=== PATIENT | male | born 1975 | race Caucasian/White ===

== ENCOUNTER 2021-06-06 09:55 | Emergency (ER) | payer OTHER ==
[~2021-06-06 09:55] MED LIST: INVOKANA100 MG PO; PRINIVIL10 MG PO; ZOCOR5 MG PO
[2021-06-06 10:42] LABS: BASOPHIL 0.9 % (0-2); HCT 43.6 % (42.0-52.0); HGB 15.2 g/dl (13.2-18.0); LYMPHOCYTE 23.5 % (15-48); MCH 29.9 pg (25.0-31.0); MCHC 34.9 g/dL (32.0-36.0); MCV 85.8 fL (78.0-100.0); MONOCYTE 7.5 % (0-12); MPV 9.8 fL (6.0-9.5); NEUTROPHIL 66.8 % (41-80); NRBC 0; PLT 215 K/uL (150-400); RBC 5.08 M/uL (4.70-6.00); WBC 5.9 K/uL (4.0-10.5)
[2021-06-06 11:25] LABS: INR 0.99 (0.9-1.2); PROTHROMBIN TIME 12.5 SECONDS (11.8-13.4); PTT 26.9 SECONDS (24.4-34.7)
[2021-06-06 11:43] LABS: ALBUMIN 3.5 g/dL (3.4-5.0); BILIRUBIN - TOTAL 0.5 mg/dL (0.2-1.0); BUN/CREAT RATIO (CALC) 21.2 RATIO; CREATININE 0.66 mg/dL (0.67-1.17); GLOBULIN (CALCULATION) 3.1 g/dL; POTASSIUM 4.3 mmol/L (3.5-5.1); TOTAL PROTEIN 6.6 g/dL (6.4-8.2)
[2021-06-06 13:17] LABS: INFLUENZA A NAA NEGATIVE (NEGATIVE)
[2021-06-06 13:31] LABS: CORONAVIRUS 2019 SARS-COV-2 POSITIVE (NEGATIVE)
[2021-06-06] MEDS ORDERED: MOBIC15 MG PO (13:40)
== END 2021-06-06 13:57 | disposition home or self-care (01) ==
LOC: FER 09:55
PROVIDERS: Internal Medicine
DX: U07.1 COVID-19 (principal); E11.9 Type 2 diabetes mellitus without complications; E78.5 Hyperlipidemia, unspecified; I10 Essential (primary) hypertension; F17.290 Nicotine dependence, other tobacco product, uncomplicated
CPT/HCPCS: 36415; 71045; 80053; 83036; 84484; 85025; 85610; 85730; 93005; U0002